=== PATIENT | female | born 1975 | race Caucasian/White ===

== ENCOUNTER 2017-08-29 22:21 | Inpatient (IN) | payer BC, OTHER ==
[~2017-08-29] VITALS: Ht 165.1 cm; Wt 82.6 kg
[2017-08-29] MEDS ORDERED: diphenhydrAMINE 50 MG CAPSULE PO PRN (23:00)
[2017-08-29] MEDS ORDERED: MIRALAX 17 GM POWD.PACK PO PRN (23:00)
[2017-08-29] MEDS ORDERED: ONDANSETRON 4 MG/2 ML VIAL IM PRN (23:00)
[2017-08-29] MEDS ORDERED: LORAZEPAM 1 MG TABLET PO PRN (23:00)
[2017-08-29] MEDS ORDERED: MAG HYDROX/AL HYDROX/SIMETH 30 ML LIQUID UDC PO PRN (23:00)
[2017-08-29] MEDS ORDERED: THIAMINE HCL 200 MG/2 ML VIAL IM ONE (23:00)
[2017-08-29] MEDS ORDERED: LOPERAMIDE HCL 2 MG CAPSULE PO PRN ×2 (23:00)
[2017-08-29] MEDS ORDERED: LORAZEPAM 2 MG/1 ML VIAL IM PRN (23:00)
[2017-08-29] MEDS ORDERED: ONDANSETRON ODT 4 MG TAB.RAPDIS SL PRN (23:00)
[2017-08-29] MEDS ORDERED: ACETAMINOPHEN 325 MG TABLET PO PRN (23:00)
[2017-08-29] MEDS ORDERED: MAGNESIUM HYDROXIDE 30 ML LIQUID UDC PO PRN (23:00)
--- NOTE | 2017-08-29 23:30 | NUR ---
Pre admission note Pt seen in intake office. Pt appears intoxicated but in stable condition. V/S WNL. Policies on medication disposal explained to and understood by patient. Respirations even and unlabored. Will admit to unit. Will continue to monitor.
--- NOTE | 2017-08-29 23:45 | NUR ---
Admission note Pt is a 41 yo female, A+Ox4, presenting to [facility] for ETOH withdrawal. Pt has NKA, is on Full code status, and on Regular diet. Pt is 5'5" in height and 182 LBS in weight. Pt has medical HX of HTN, Insomnia, and Depression. Pt has no primary care provider. Pt has been drinking alcohol for 23 years (1 week currently), has reached a level of 750ml Vodka/daily, and last drink was 750ml Vodka on 08/29/17 @2100. Pt is taking home medications as follows: Metoprolol 25mg QD, Lexapro 20mg QD, Trazodone 200mg QHS, and Gabapentin 900mg QHS. Pt has HX of previous Detox/Rehab @ [facility] for 90 days starting on 12/20/15 and continued sobriety until about 08/22/17. Pt has been a cigarette smoker for 20 years and has reached a level of 20/daily. Pt appears intoxicated but in stable condition. V/S WNL. Pt appears well groomed and has a non odorous scent. Pt appears to be anxious and has depressed demeanor. Pt states "I need to get sober again so that i can get back to my kids." Pt states "I'm glad that my friend brought me in to get help, otherwise i'm not sure how long i would have continued drinking." Pt states "I'm feeling sad that i relapsed this past week, it's actually kind of embarrassing." Pt states "This time around i am going to work the program as best as i can." Reassurance provided to patient that all staff will be here to assist her as much as possible. Respirations even and unlabored. Will continue to monitor.
[2017-08-29 23:55] LABS: *URINE HCG, QUAL NEGATIVE (NEGATIVE)
[2017-08-30 00:13] LABS: *AMPHETAMINE, URINE NEGATIVE (NEGATIVE); *BARBITURATE, URINE NEGATIVE (NEGATIVE); *CANNABINOID, URINE NEGATIVE (NEGATIVE); *COCCAINE, URINE NEGATIVE (NEGATIVE); *OPIATE, URINE NEGATIVE (NEGATIVE); *PHENCYCLIDINE SCREEN,URINE NEGATIVE (NEGATIVE)
[2017-08-30 00:14] VITALS: BP 154/86
[2017-08-30] MEDS ORDERED: GABA-534 PO (00:17)
[2017-08-30] MEDS ORDERED: DIPH25CA83 PO (00:17)
[2017-08-30] MEDS ORDERED: [UNRECOGNIZED DRUG - OTHER] (00:17)
[2017-08-30] MEDS ORDERED: NAPR220T66 PO (00:17)
[2017-08-30] MEDS ORDERED: METO-356 PO (00:17)
[2017-08-30] MEDS ORDERED: ESCI20TA PO (00:17)
[2017-08-30] MEDS: CLONIDINE HCL 0.1 MG TABLET PO PRN ×2 (00:37→12:16)
--- NOTE | 2017-08-30 00:40 | NUR ---
PRN Ativan 1mg, Benadryl, and Clonidine Pt noted with CIWA: 7, B/P 154/86, and inability to sleep. PRN Ativan 1mg, Benadryl, and Clonidine given and tolerated well. Will reassess within 1 HR. Will continue to monitor.
[2017-08-30 00:42] LABS: BASOPHILS # (AUTO) 0.1 K/uL (0.0-8.0); BASOPHILS % (AUTO) 1.1 % (0.0-2.0); EOSINOPHILS # (AUTO) 0.1 K/uL (0.0-0.7); EOSINOPHILS % (AUTO) 1.9 % (0.0-7.0); HEMATOCRIT 33.8 % (31.2-41.9); HEMOGLOBIN 11.4 g/dL (10.9-14.3); LYMPHOCYTES # (AUTO) 1.7 K/uL (20.0-40.0); LYMPHOCYTES % (AUTO) 30.3 % (20.5-51.5); MEAN CORPUSCULAR HEMOGLOBIN 27.9 uug (24.7-32.8); MEAN CORPUSCULAR HGB CONC 34 g/dL (32.3-35.6); MEAN CORPUSCULAR VOLUME 82.2 fL (75.5-95.3); MONOCYTES # (AUTO) 0.3 K/uL (2.0-10.0); MONOCYTES % (AUTO) 5.5 % (0.0-11.0); NEUTROPHILS # (AUTO) 3.4 K/uL (1.8-8.9); NEUTROPHILS % (AUTO) 61.2 % (38.5-71.5); PLATELET COUNT (AUTO) 328 K/uL (179-408); RED BLOOD CELL COUNT(AUTO) 4.11 MIL/uL (3.63-4.92); WHITE BLOOD COUNT (AUTO) 5.6 K/uL (3.8-11.8)
[2017-08-30 00:58] LABS: BILIRUBIN,TOTAL 0.6 mg/dL (0.2-1.0); CREATININE 0.8 mg/dL (0.6-1.3); MAGNESIUM 2.2 mg/dL (1.8-2.4); POTASSIUM 3.5 mmol/L (3.5-5.1); TOTAL PROTEIN, SERUM 7.8 g/dL (6.4-8.2)
[2017-08-30 01:13] LABS: THYROID STIMULATING HORMONE 2.606 mIU/mL (0.358-3.740)
--- NOTE | 2017-08-30 01:35 | NUR ---
PRN Ativan 1mg, Benadryl, and Clonidine Reassessment Medications effective. CIWA: 5. Pt is resting well in bed. B/P decreased to 144/82. No s/s of ASE noted at this time. Respirations even and unlabored. Will continue to monitor.
[2017-08-30] MEDS ORDERED: TRAZ-147 PO (04:07)
[2017-08-30 04:24] VITALS: BP 138/82
--- NOTE | 2017-08-30 06:46 | NUR ---
End of shift note Newly admitted patient. Pt was continuously noted to be anxious, agitated, and restless. Pt remained in room for majority of remainder of shift except to go smoke on smoking patio and to get food from kitchen. Pt was given PRN Ativan 1mg, Benadryl , and Clonidine @0037. Pt is on PRN medications until further review from MD in AM. Pt slept for a total of 1 HR. Last CIWA: 5 @0400. Respirations even and unlabored. Will endorse to day shift nurse.
[2017-08-30] MEDS: LORAZEPAM 1 MG TABLET PO PRN ×4 (07:01→21:37)
--- NOTE | 2017-08-30 07:01 | NUR ---
PRN Ativan 2mg Pt c/o anxiety and noted with CIWA: 13. PRN Ativan 2mg given and tolerated well. Will endorse to day shift nurse to reassess within 1 HR. Will continue to monitor.
--- NOTE | 2017-08-30 07:58 | NUR ---
START OF SHIFT: RECEIVED PT A/O X 4. HER FACE IS FLUSHED. TREMORS NOTED TO BILATERAL HANDS. SHE REPORTS BEING AWAKE ALL NIGHT. SHE STATES THE ATIVAN PRN GIVEN AT 0700 BY NIGHT NURSE WAS EFFECTIVE. CIWA 9.SHE REPORTS ANXIETY SADNESS AND IRRITABILITY. SHE DENIES S/I AND H/I. ENCOURAGED INCREASED FLUIDS AND REST TODAY. WILL CONTINUE TO PROVIDE SAFE AND SUPPORTIVE ENVIRONMENT AND MANAGE S/S OF W/D.
[2017-08-30 08:04] VITALS: BP 149/87
[2017-08-30] MEDS ORDERED: TUBERCULIN,PURIF.PROT.DERIV. 5 TU/0.1 ML TEST ID ONE (09:00)
--- NOTE | 2017-08-30 09:10 | NUR ---
PRN ATIVAN 2 MG PO PRN GIVEN FOR CIWA 13. SHE REPORTS SEVERE ANXIETY, AGITATION AND RESTLESSNESS. SHE REPORTS SOME NAUSEA AND SWEATING. SHE REFUSES AN ANTI EMETIC. WILL MONITOR EFFECTIVENESS OF PRN MED.
[2017-08-30] MEDS: FOLIC ACID 1 MG TABLET PO SCH (09:11)
[2017-08-30] MEDS: MULTIVITAMINS,THERAPEUTIC TABLET PO SCH (09:11)
[2017-08-30] MEDS: THIAMINE HCL 100 MG TABLET PO SCH (09:11)
[2017-08-30 12:00] VITALS: BP 157/93
[2017-08-30] MEDS ORDERED: hydrALAZINE HCL 50 MG TABLET PO PRN (12:15)
[2017-08-30] MEDS: METOPROLOL SUCCINATE 25 MG PO SCH (13:51)
[2017-08-30] MEDS: GABAPENTIN 300 MG CAPSULE PO SCH (15:02)
--- NOTE | 2017-08-30 15:03 | NUR ---
PRN ATIVAN Patient presenting with: increase anxiety, difficulty sitting still, wringing hands, agitation, tremors, and restlessness, with ciwa score of :13. will monitor effectiveness of medication.
--- NOTE | 2017-08-30 15:05 | NUR ---
ASSUMED CARE Assumed care for patient, all pertinent information was discussed with staff nurse, will continue to monitor closely. safety measures in place.
--- NOTE | 2017-08-30 16:03 | NUR ---
ATIVAN REASSESSMENT Medication effective, decrease in cow score from 13 to 9, patient reports less anxiety. will continue to monitor.
[2017-08-30] MEDS: IBUPROFEN 400 MG TABLET PO PRN (16:53)
[2017-08-30 17:21] VITALS: BP 143/86
--- NOTE | 2017-08-30 18:56 | NUR ---
END OF SHIFT Patient alert and oriented x4, monitored closely during shift. Patient has a worried, and anxious facial expression. Patient at times with increase anxiety, provided with calming reassurance as needed along with non pharmacological interventions as needed. Assumed care for patient at: . Patient presented with: anxiety, difficulty sitting still, restlessness, tremors, patient with ciwa score of: 13. Last ciwa score of: 9. Received PRN: Ativan 2mg PO as ordered medication was effective, one hour post administration. Patient encouraged participation in therapy sessions,patient noted attending and participating. patient denies any SI/HI, Patient was encouraged to verbalize feelings, encouraged to develop coping skills and utilization of non pharmacological interventions. Patients safety measures are in place. call light kept within reach, will continue to monitor. Endorsed to caustic cresylate shift superintendent nurse, all pertinent information discussed.
--- NOTE | 2017-08-30 19:12 | NUR ---
Start of shift note Received report from day shift nurse. Pt is a 41 yo female, A+Ox4, presenting to [facility] for ETOH withdrawal. Pt noted to be anxious, agitation, restlessness, and depressed demeanor. Pt has HX of HTN, Insomnia, and Depression which will be monitored during shift. Pt is on PRN Ativan, tolerated well. Respirations even and unlabored. Will continue to monitor.
[2017-08-30 20:10] VITALS: BP 149/96
[2017-08-30] MEDS ORDERED: GABAPENTIN 300 MG CAPSULE PO SCH (21:00)
[2017-08-30] MEDS ORDERED: TRAZODONE 100 MG TABLET PO SCH (21:00)
--- NOTE | 2017-08-30 21:37 | NUR ---
PRN Ativan 2mg Pt c/o anxiety and noted with CIWA: 14. PRN Ativan 2mg given and tolerated well. Will reassess within 1 HR. Will continue to monitor.
--- NOTE | 2017-08-30 22:30 | NUR ---
PRN Ativan 2mg Reassessment Medication effective. Pt expresses reduction in anxiety and noted with CIWA: 10. No s/s of ASE noted at this time. Respirations even and unlabored. Will continue to monitor.
[2017-08-31 00:20] VITALS: BP 137/84
[2017-08-31 04:26] VITALS: BP 132/78
--- NOTE | 2017-08-31 07:00 | NUR ---
End of shift note Pt was continuously noted with anxiety, restlessness, agitation, and depressed demeanor. Pt remained in room for majority of shift except to go smoke on smoking patio and to get food from kitchen. Pt was given PRN Ativan 2mg @2137. Pt slept for a total of 10 HRS. Last CIWA: 7 @0400. Respirations even and unlabored. Will continue to monitor.
--- NOTE | 2017-08-31 07:47 | NUR ---
BEGINNING OF SHIFT Patient endorsement report received from night worker nurse, all pertinent information discussed. Patient is a 41 year old female with admitting Dx: etoh withdrawal. Patient is Currently under close observation, patient currently with no ongoing taper, but has PRN medication for s/sx of withdrawal. slept for 10 hours. Patient with last ciwa score of: 7 Fall and seizure precautions observed at all times. Patient awake, alert and oriented x4, will educated regarding plan of care for the day, and medication regimen. Patient received PRN:Ativan as per night worker. fall and seizure precautions observed and in place. will continue to monitor closely. safety measures in place
[2017-08-31 08:11] VITALS: BP 127/80
[2017-08-31] MEDS: MULTIVITAMINS,THERAPEUTIC TABLET PO SCH (08:42)
[2017-08-31] MEDS: THIAMINE HCL 100 MG TABLET PO SCH (08:42)
[2017-08-31] MEDS: FOLIC ACID 1 MG TABLET PO SCH (08:42)
[2017-08-31] MEDS: GABAPENTIN 300 MG CAPSULE PO SCH (08:42)
[2017-08-31] MEDS: METOPROLOL SUCCINATE 25 MG PO SCH (08:42)
[2017-08-31] MEDS ORDERED: ESCITALOPRAM OXALATE 10 MG TABLET PO SCH (09:00)
[2017-08-31 09:06] LABS: HEPATITIS B SURFACE AG Negative (Negative)
[2017-08-31] MEDS: IBUPROFEN 400 MG TABLET PO PRN (11:35)
--- NOTE | 2017-08-31 11:35 | NUR ---
PRN DEBRIN patient reports generalized body aches 5/10, administered ibuprofen as ordered, will monitor effectiveness of medication.
--- NOTE | 2017-08-31 12:30 | NUR ---
MD COMMUNICATION MD cleared patient for discharge. patient noted self motivated towards sobriety. will discuss all discharge instructions and teaching with patient. patient in stable condition, not in any apparent acute distress.
[2017-08-31 12:33] VITALS: BP 145/89
--- NOTE | 2017-08-31 12:35 | NUR ---
MOTRIN REASSESSMENT Patient reports medication effective, current pain level 0/10, will continue to monitor.
[2017-08-31] MEDS ORDERED: DIPH50CA37 PO (12:57)
[2017-08-31] MEDS ORDERED: IBUP-1953 PO (12:57)
[2017-08-31] MEDS ORDERED: GABA-534 PO ×2 (12:57)
[2017-08-31] MEDS ORDERED: ESCI10TA PO (12:57)
--- NOTE | 2017-08-31 14:34 | NUR ---
DISCHARGE Patient was discharged off the unit at 1434. prior to discharge patient was educated regarding all discharge instructions and provided with teaching regarding discharge with good verbal understanding. patients vital signs WNL. last ciwa score of: 5. Patient self motivated towards sobriety, verbalizing i am ready to do this, i want to continue with my life. Patients home medications, prescriptions and discharge instructions were placed in patients personal duffel bag. patient discharged home and off the unit at 1434.
== END 2017-08-31 14:34 | disposition home or self-care (01) | DRG 895 ==
LOC: SRC 22:41
PROVIDERS: ADMIT Internal Medicine; ATTEND Internal Medicine
PROC: HZ2ZZZZ Detoxification Services for Substance Abuse Treatment (ICD-10-PCS; principal; 2017-08-29)
PROC: HZ51ZZZ Individual Psychotherapy for Substance Abuse Treatment, Behavioral (ICD-10-PCS; 2017-08-31)
DX: F10.230 Alcohol dependence with withdrawal, uncomplicated (principal); F33.0 Major depressive disorder, recurrent, mild; I15.9 Secondary hypertension, unspecified; F17.210 Nicotine dependence, cigarettes, uncomplicated; G47.00 Insomnia, unspecified; Z81.1 Family history of alcohol abuse and dependence; Y90.7 Blood alcohol level of 200-239 mg/100 ml; Z82.49 Family history of ischemic heart disease and other diseases of the circulatory system; Z98.84 Bariatric surgery status; Z91.89 Other specified personal risk factors, not elsewhere classified
CPT/HCPCS: 36415; 80307; 83735; 84443; 84703; 85025; 86580; 86592; 86705; 86803; 87340; 87806; A4663; G0480; Q0163